=== PATIENT | female | born 1975 | race Two or more races ===

== ENCOUNTER 2021-06-23 21:32 | Emergency (ER) | payer SELFPAY ==
[~2021-06-23] VITALS: Ht 154.9 cm; Wt 110.0 kg
--- NOTE | 2021-06-23 21:45 | PHYS DOC ---
General Adult EDM: Chief Complaint: ABDOMINAL PAIN HPI: HPI: Patient is a 46 year old female who presents with 3 months of generalized pelvic pain. No specific changes today other than the pain persists. She denies vaginal discharge or bleeding. She does have a history of intermittent heavy menstrual bleeding, passing clots on occasion. LMP about 2 weeks ago. She denies urinary symptoms. She denies fevers or chills. She reports mild nausea but no vomiting. She is eating and drinking well, no change in appetite. Denies constipation or diarrhea. No previous abdominal or pelvic surgeries. She has seen her primary care physician as an outpatient several times for this. She has had blood work, pelvic exams, had Pap smears, exams screening for STI, and she has had an outpatient ultrasound. She reports to me that she is told that she has "cysts in the canal." She has been referred to a certified pharmacy tech at [facility], though she reports that she has not been able to make an appointment yet, though she also indicates that she might have an ap pointment in July. She contacted her primary care physician [facility] [place] and they told her that if her pain is severe enough she should go to the ER. She is very frustrated with this chronic condition. She reports that she is frustrated because she does not have an answer as to why she has this much pain. She has reportedly been taking [id number] Tylenol and ibuprofen with little to no relief. Review of Systems: Review of Systems: Constitutional: Denies fever or chills. [] Respiratory: Denies cough or shortness of breath. [] Cardiovascular: Denies chest pain or edema. [] GI: Diffuse lower pelvic pain. Reports nausea, no vomiting. No diarrhea or constipation : Pelvic pain. Denies urinary symptoms. Denies vaginal discharge or bleed ing. Musculoskeletal: Denies back pain or joint pain. [] Integument: Denies rash. [] Neurologic: Denies headache, focal weakness or sensory changes. [] Psychiatric: Anxiety and frustration regarding pain Heart Score: C/O Chest Pain: No Risk Factors: Risk Factors: DM, Current or recent (<one month) smoker, HTN, HLP, family history of CAD, obesity. Risk Scores: Score 0 - 3: 2.5% MACE over next 6 weeks - Discharge Home Score 4 - 6: 20.3% MACE over next 6 weeks - Admit for Clinical Observation Score 7 - 10: 72.7% MACE over next 6 weeks - Early Invasive Strategies Allergies: Allergies: Allergies Coded Allergies Type Severity Reaction Last Updated Verified No Known Drug Allergies 06/23/21 No Physical Exam: PE: Constitutional: Well developed, well nourished, no acute distress, non-toxic appearance. [] HENT: Normocephalic, atraumatic Neck: Normal range of motion, no tenderness, supple, no stridor. [] Cardiovascular:Heart rate regular rhythm, +2 dorsalis pedis and +2 radial pulses bilaterally. No peripheral edema Lungs & Thorax: Bilateral breath sounds clear to auscultation, no rales, rhonchi or wheezes Abdomen: Abdomen is obese, soft, I am unable to elicit any tenderness on exam. No palpable masses organomegaly. No CVA tenderness. No flank abdominal ecchymoses. Skin: Warm, dry, no erythema, no rash. [] Back: No tenderness, no CVA tenderness. [] Extremities: No tenderness, no cyanosis, no clubbing, ROM intact, no edema. [] Neurologic: Awake, alert, interactive, ambulatory with a steady gait, grossly normal motor function, speech clear and fluent Psychologic: Affect is flat, tearful EKG: EKG: [] Radiology/Procedures: Radiology/Procedures: [] Course & Med Decision Making: Course & Med Decision Making Pertinent Labs and Imaging studies reviewed. (See chart for details) I ordered IV Toradol and IV Zofran for her. Imaging studies are discussed. I explained that she appears to have cysts near her cervix, this is likely what was demonstrated on her previous outpatient ultrasound that she has had done. Her work-up is unremarkable for any acute life-threatening process at this time. I have discussed all of the findings, differential diagnosis and plan of care with her. The patient became somewhat angry and hostile, when I explained that I did not have a definitive explanation for her pain. She reports that she does not have insurance and she is not able to get into be seen with gynecologists because of this. However, she also reports that she does not want to go to to see gynecology. I did explain to her that the emergency department is only c apable of evaluating for emergency and life-threatening conditions, surgical emergencies, differentiating the need for admission versus outpatient management. I explained very thoroughly that I empathized with her and I am sorry that she has pain. I have offered multiple times to prescribe something for pain for her to have as an outpatient. She escalates with anger and tells me that the prescription medication she was given here did not do anything for her pain. I explained that I cannot give her anything sedating secondary to the fact that she drove here and did not have another ride. I did explain this to her several times. I also explained to her several times that I would be more than happy to prescribe something stronger for pain control upon discharge. I asked for her to give me a pharmacy to which I can send a prescription. She refuses to given the name of the pharmacy. She angrily states that she does not want me to prescribe her anything at all now. I did give her multiple outpatient resources so that she can be seen by certified pharmacy tech. I told her that definitive diagnosis may require surgical intervention, such as hysteroscopy, laparoscopy. She tells me to get out of her room and go get her papers for discharge. I did attempt to provide return precautions prior to her leaving the ER. Yaquelin Disclaimer: Yaquelin Disclaimer: This electronic medical record was generated, in whole or in part, using a voice recognition dictation system. Departure Departure Impression: Primary Impression: Chronic pelvic pain in female Disposition: 01 HOME / SELF CARE / HOMELESS Condition: STABLE Referrals: MARCELA RIOS MD, DONALD G Jr. MD Patient Instructions: Pelvic Pain, Female Additional Instructions: Please return to the ER if you develop any acute changes in pain, if you develop uncontrolled vomiting, dehydration, temperature of 100.4 or higher, if you develop any severe heavy, uncontrolled vaginal bleeding or for any other concerns. Please follow-up with outpatient certified pharmacy tech. You may need to have further invasive procedures, such as laparoscopic surgery, vaginal or uterine exploration to try to find the underlying cause of your pain. Please follow-up with your primary care doctor as scheduled. KIESHA GONZALEZ DO Jun 23, 2021 21:45
[2021-06-23 22:23] LABS: U PREG PATIENT NEGATIVE (NEG)
[2021-06-23 22:24] LABS: BILIRUBIN,URINE NEGATIVE (NEG); CLARITY,URINE CLEAR; COLOR,URINE YELLOW; NITRITE,URINE NEGATIVE (NEG); PH,URINE 5.5 (<5.0-8.0); PROTEIN,URINE NEGATIVE (NEG-TRACE); UROBILINOGEN,URINE 0.2 mg/dL (0.2 mg/dL)
[2021-06-23 22:25] LABS: BACTERIA,URINE FEW /HPF (0-FEW); RBC,URINE 0 /HPF (0-2); WBC,URINE OCC /HPF (0-4)
[2021-06-23] MEDS ORDERED: KETOROLAC 15 MG/ML VIAL. IVP ONE (22:30)
[2021-06-23] MEDS ORDERED: ONDANSETRON PF 4 MG/2 ML VIAL. IVP ONE (22:30)
[2021-06-23 22:46] LABS: BASO % 0 % (0-3); EOS # 0.2 x10^3/uL (0.0-0.7); EOS % 2 % (0-3); HEMATOCRIT 37.4 % (36.0-47.0); HEMOGLOBIN 12.2 g/dL (12.0-15.5); LYMPH # 3.3 x10^3/uL (1.0-4.8); LYMPH % 32 % (24-48); MEAN CORPUSCULAR HEMOGLOBIN 28 pg (25-35); MEAN CORPUSCULAR HGB CONC 33 g/dL (31-37); MEAN CORPUSCULAR VOLUME 84 fL (79-100); MONO # 0.5 x10^3/uL (0.0-1.1); MONO % 5 % (0-9); NEUT # 6.1 x10^3/uL (1.8-7.7); NEUT % 60 % (31-73); PLATELET COUNT 308 x10^3/uL (140-400); RED BLOOD COUNT 4.45 x10^6/uL (3.50-5.40); WHITE BLOOD COUNT 10.1 x10^3/uL (4.0-11.0)
[2021-06-23 23:21] LABS: CREATININE 0.7 mg/dL (0.6-1.0); GFR 91.3; POTASSIUM 3.9 mmol/L (3.5-5.1)
[2021-06-23 23:57] VITALS: BP 129/67
--- NOTE | 2021-06-23 23:57 | RAD ---
EXAM: ULTRASOUND PELVIS INDICATION: Pelvic pain for 2 months. Ultrasound in 2 weeks, DIC and was told she had a fibroid and n abothian cysts. COMPARISON: None available. TECHNIQUE: Transpelvic sonography was performed. FINDINGS: The uterus measures 8.0 x 4.8 x 3.5 cm. The endometrium measures 5.3 mm. There is a 1.2 x 1.2 x 1.4 c m hypoechoic mass in the fundus consistent with a fibroid. There are multiple small nabothian cysts. There is also a 2.9 x 1.6 x 2.9 cm hypoechoic mass either in or immediately adjacent to this cervix. This has circumscribed margins and some internal echoes. There is no internal vascularity. The right ovary is obscured by bowel gas. The left ovary measures 2.7 x 2.4 x 2.3 cm. Normal left ovarian blood flow. There is a 1.3 x 1.3 x 1. 6 cm anechoic simple left ovarian cyst. There is no free fluid. IMPRESSION: 1. 2.9 cm well-circumscribed hypoechoic mass in or immediately adjacent to the cervix. This is indete rminate and could be a large complex nabothian cyst, or other complex cystic mass. There is no defini te internal vascularity but neoplasm is not excluded. Recommend correlation with outside prior ultras ound and consider MRI to further evaluate. 2. 1.4 cm fibroid in the uterus. 3. 1.6 cm simple left ovarian cyst. Electronically signed by: Tiffanie Freeman MD (06/23/2021 11:55 PM) [facility]
== END 2021-06-24 00:39 | disposition home or self-care (01) ==
LOC: EDBD 21:32 → ER 21:32
DX: G89.29 Other chronic pain (principal); R10.2 Pelvic and perineal pain; R11.0 Nausea
CPT/HCPCS: 36415; 76856; 80048; 81001; 81025; 85025; 96374; 96375; 99284; J1885; J2405

== ENCOUNTER 2021-09-02 10:15 | Emergency (ER) | payer SELFPAY | END 2021-09-02 13:06 | disposition left against medical advice (07) | LOC: ER 10:15 | DX: Z48.817 Encounter for surgical aftercare following surgery on the skin and subcutaneous tissue (principal); Z53.21 Procedure and treatment not carried out due to patient leaving prior to being seen by health care provider ==

== ENCOUNTER 2021-09-16 09:00 | Emergency (ER) | payer SELFPAY ==
[~2021-09-16] VITALS: Ht 154.9 cm; Wt 115.0 kg
[2021-09-16 09:16] VITALS: BP 135/84
--- NOTE | 2021-09-16 10:07 | PHYS DOC ---
Past Medical History Additional Past Medical Histor: migraines Past Surgical History: Cholecystectomy, Hysterectomy Additional Past Surgical Histo: DNC Smoking Status: Never Smoker Alcohol Use: None Drug Use: None General Adult EDM: Chief Complaint: POST-OP PROBLEM HPI: HPI: Patient is a 46 year old female who presents with concern for a hysterectomy incision. Patient reports when she was cleaning her incision wound this morning, there was some bleeding from the most superior part of the surgical incision. Patient states that it sometimes feels "red and warm." She reports associated intermittent "[id number]" along the incision line. Patient had a hysterectomy about 1 month ago in [place]. She denies fever, chills, generalized weakness, purulent drainage from the wound, abdominal pain, pelvic pain. Review of Systems: Review of Systems: ROS negative or noncontributory except as mentioned in HPI. Heart Score: C/O Chest Pain: No Allergies: Allergies: Allergies Coded Allergies Type Severity Reaction Last Updated Verified No Known Drug Allergies 06/23/21 No Physical Exam: PE: Constitutional: Obese, no acute distress, non-toxic appearance. HENT: Normocephalic, atraumatic, bilateral external ears normal, nose normal. Eyes: EOMI, conjunctiva normal, no discharge. Neck: Normal range of motion, no stridor. Abdomen: Bowel sounds normal, soft, no tenderness/rebound/guarding, no masses, no pulsatile masses. Skin: Nondehisced, well-healing midline surgical incision extending from just inferior to the umbilicus down to suprapubic region, most superior part of the incision has a 1 mm x 1 mm superficial crusting without surrounding induration or fluctuance. Skin otherwise warm, dry, no erythema, no rash. Extremities: No cyanosis, no clubbing, ROM intact, no edema. Neurologic: Alert and oriented x4, normal motor function, normal sensory f unction, steady and symmetrical upright gait, no focal deficits noted. Current Patient Data: Vital Signs: Vital Signs Date Time Temp Pulse Resp B/P (MAP) Pulse Ox O2 Delivery O2 Flow Rate FiO2 09/16/21 09:16 97.6 80 16 135/84 (101) 100 Room Air 97.6 Course & Med Decision Making: Course & Med Decision Making Pertinent Labs and Imaging studies reviewed. (See chart for details) Patient is a 46-year-old female who presents for a wound check 1 month status post hysterectomy in [place]. Wound appears to be very well healing. There is 1 area at the superiormost part of the incision that appears to be superficially crusted. There is no sign of infection. Patient was counseled on wound care instruction. She states she does currently have a dermatologist and dermatopathologist with whom she can follow-up if needed. Return precautions were provided. Patient understands and is agreeable to discharge plan. Dragon Disclaimer: Dragon Disclaimer: This electronic medical record was generated, in whole or in part, using a voice recognition dictation system. Departure Departure Impression: Primary Impression: Visit for wound check Disposition: HOME / SELF CARE / HOMELESS Condition: STABLE Referrals: UNKNOWN PCP NAME (PCP) Patient Instructions: Wound Care, [id number] Additional Instructions: Please schedule a visit with your dermatologist and dermatopathologist should you have any further con cerns. Return to the emergency department for worsening symptoms or new symptoms. EMERGENCY DEPARTMENT GENERAL DISCHARGE INSTRUCTIONS Thank you for coming to [facility] Emergency Department (ED) today and trusting us with you care. We trust that you had a positive experience in our Emergency Department. If you wish to speak to the department management, you may call the director at . YOUR FOLLOW UP INSTRUCTIONS ARE FOLLOWS: 1. Follow up with your primary care doctor. If you do not have a primary doctor, please ask for a resource list of physicians or clinics that may be able to assist you with follow up care. 2. The emergency provider has interpreted your imaging studies, if any were ordered. The radiology community living specialist also reviewed them. If there is a change in the findings, you will be notified in 48 hours when at all possible. 3. If a lab test or culture has been done, your results will be reviewed and you will be notified if you need a change in treatment. 4. Follow instructions verbalized to you and refer to the printouts if needed. ADDITIONAL INSTRUCTIONS AND INFORMATION: 1. Your care today has been supervised by a physician who is specially trained in emergency care. Many problems require more than one evaluation for a complete diagnosis and treatment. We recommend that you schedule your follow up appointment as recommended to ensure complete treatment of you illness or injury. If you are unable to obtain follow up care and continue to have a problem, or if your condition worsens, we recommend that you return to the ED. 2. We are not able to safely determine your condition over the phone nor are we able to give sound medical advice over the phone. For these safety reasons, if you call for medical advice we will ask you to come to the ED for further evaluation. 3. If you have any questions regarding these discharge instructions please call the ED at . SAFETY INFORMATION: In the interest of safety, wellness, and injury prevention; we encourage you to wear your seat belt, if you smoke; quite smoking, and we encourage family to use a protective helmet for bicycling and other sporting events that present an increased risk for head injury. IF YOUR SYMPTOMS WORSEN OR NEW SYMPTOMS DEVELOP, OR YOU HAVE CONCERNS ABOUT YOUR CONDITION; OR IF YOUR CONDITION WORSENS WHILE YOU ARE WAITING FOR YOUR FOLLOW UP APPOINTMENT; EITHER CONTACT YOUR PRIMARY CARE DOCTOR, THE PHYSICIAN WHOSE NAME AND NUMBER YOU WERE GIVEN, OR RETURN TO THE ED IMMEDIATELY. ADALGISA THOMPSON September 16, 2021 10:07
== END 2021-09-16 10:33 | disposition home or self-care (01) ==
LOC: ER 09:00
DX: L76.22 Postprocedural hemorrhage of skin and subcutaneous tissue following other procedure (principal); G43.909 Migraine, unspecified, not intractable, without status migrainosus; Z90.710 Acquired absence of both cervix and uterus; Z90.49 Acquired absence of other specified parts of digestive tract
CPT/HCPCS: 96372; 99283